=== PATIENT | male | born 1990 | race African-American/Black ===

== ENCOUNTER 2019-11-19 07:08 | Emergency (ER) | payer MEDICAID ==
[~2019-11-19] VITALS: Ht 177.8 cm; Wt 87.0 kg
[2019-11-19] MEDS ORDERED: SODIUM CHLORIDE 0.9% 1,000 ML IV ONE (08:10)
[2019-11-19] MEDS ORDERED: KETOROLAC 30MG/ML VIAL IV STA (08:10)
[2019-11-19 08:26] LABS: BASOPHILS % 0.4 % (0.0-2.0); EOSINOPHILS % 0.6 % (0.0-5.0); HEMATOCRIT. 42.8 % (42.0-52.0); HEMOGLOBIN. 15.1 g/dL (14.0-18.0); LYMPHOCYTES % 8.7 % (20.0-50.0); MEAN CORPUSCULAR HEMOGLOBIN 31.9 pg (28.0-32.0); MEAN CORPUSCULAR VOLUME 90.5 fL (80.0-94.0); MEAN PLATELET VOLUME 8.4 fl (7.4-10.4); MONOCYTES % 11.1 % (2.0-8.0); NEUTROPHILS % 79.2 % (40.0-76.0); PLATELET 282 x1000/uL (130-400); RED BLOOD CELL COUNT 4.72 mill/uL (4.7-6.1); RED CELL DISTRIBUTION WIDTH 13.5 % (11.6-14.6)
[2019-11-19] MEDS ORDERED: BACITRACIN ZINC OINT UDPKT TOP ONE (08:30)
[2019-11-19] MEDS ORDERED: CEPHALEXIN 250MG CAPSULE PO ONE (08:30)
[2019-11-19] MEDS ORDERED: LIDOCAINE HCL/PF 1% 10 MG/ML 5ML VIAL IJ ONE (08:30)
[2019-11-19] MEDS ORDERED: SULFAMETHOXAZOLE/TRIMETHOPRIM 800/160MG TABLET PO ONE (08:30)
[2019-11-19 08:32] LABS: CHLORIDE 101 mEq/L (98-107)
[2019-11-19] MEDS ORDERED: POTASSIUM CHLORIDE 20MEQ TABLET SR PO ONE (08:45)
[2019-11-19 13:20] VITALS: BP 129/86
== END 2019-11-19 13:30 | disposition home or self-care (01) ==
LOC: ER 07:08
DX: L02.31 Cutaneous abscess of buttock (principal); R00.0 Tachycardia, unspecified
CPT/HCPCS: 10060; 36415; 80053; 82270; 85025; 93005; 96361; 96374; 99285; J1885; J7030; J3490